=== PATIENT | male | born 1970 | race Caucasian/White ===

== ENCOUNTER 2016-10-24 10:36 | Emergency (ER) | payer MEDICAID ==
--- NOTE | ~2016-10-24 | CT4 ---
[facility] A Service of [facility] & [facility] RADIOLOGY TEXT RESULTS PATIENT: DEEDEE BRUNNER LOCATION: SED : 70 UNIT #: [id number] AGE: [address]: Willy Swain MD SEX: M ORDER DR: [id number] [place] [id number] E MR#: [id number] Acc #: [id number] NAME: DEEDEE BRUNNER : 1970 SEX: M STUDY DATE/TIME: 10/24/2016 11:20 UNIT: SED ROOM: STUDY DESCRIPTION: CT Abd and Pelv Wo Cont Attending Physician: Willy Swain M.D. Ordering Physician: Willy Swain M.D. Primary Care Physician: Ky Kincaid A.P.R.N. MEDICAL IMAGING REPORT This report is preliminary unless electronic signature is present. EXAM CT of the abdomen and pelvis without contrast INDICATIONS Right flank pain and vomiting for [address] images obtained from the dome of the diaphragm through the symphysis pubis. Oral contrast material was administered. This CT exam was performed with one or more of the following radiation dose reduction techniques: automatic exposure control, adjustment of mA and/or kV according to patient size, and iterative reconstruction. FINDINGS This patient has kvga-qw-cgiwbfle right-sided hydroureteronephrosis which is secondary to a 6 mm stone which is located in the proximal right ureter. Distal to this ureter is decompressed and no distal ureteral stones are seen. No stones are actually identified within either kidney and no ureteral stones are seen on the left. Patient does have perinephric soft tissue stranding around the right kidney and correlation with urinalysis and urine cultures is recommended. The spleen, stomach, proximal small bowel, adrenal glands, pancreas and gallbladder all appear unremarkable. Patient is suspected to have a cyst within the left kidney. No free fluid or adenopathy seen within the abdomen. There is a small fat-containing umbilical hernia. Patient's appendix is visualized and is within normal limits. Prostate gland contains dystrophic calcifications. Urinary bladder appears unremarkable. There are some sparse colonic diverticula without any evidence of diverticulitis. No free fluid or STS. [facility] A Service of [facility] & [facility] RADIOLOGY TEXT RESULTS PATIENT: DEEDEE BRUNNER LOCATION: SED : 70 UNIT #: [id number] AGE: [address]: Willy Swain MD SEX: M ORDER DR: adenopathy seen within the pelvis. Small bilateral fat containing inguinal hernias are noted. Review of bony windows does not demonstrate any aggressive osseous abnormalities. IMPRESSION 1. Bpqy-la-wpqcjypi right-sided hydroureteronephrosis which is secondary to a 6 mm stone located within the proximal right ureter. Distal to this, the ureter is decompressed. Patient is noted to have some perinephric and periureteral soft tissue stranding. Correlation with urinalysis and urine cultures is recommended. No stones are identified on the left and no distal ureteral or bladder stones are identified. 2. Sparse colonic diverticula without any evidence of diverticulitis. 3. Please see the body of the report for other additional incidental findings. 4. 1. Dictated by... Margaret Milton M.D. THIS IS AN ELECTRONICALLY VERIFIED REPORT Margaret Milton M.D. at 10/27/2016 1:26 PM AFF/pcl TD: 10/24/2016 19:48 JOB #: [id number] MEDICAL IMAGING REPORT Page 1 of 1
--- NOTE | ~2016-10-24 | CR6 ---
[facility] A Service of [facility] & [facility] RADIOLOGY TEXT RESULTS PATIENT: DEEDEE BRUNNER LOCATION: SED : 70 UNIT #: [id number] AGE: [address]: Willy Swain MD SEX: M ORDER DR: [id number] [place] [id number] E MR#: [id number] Acc #: [id number] NAME: DEEDEE BRUNNER : 1970 SEX: M STUDY DATE/TIME: 10/24/2016 12:15 UNIT: SED ROOM: STUDY DESCRIPTION: CR Abdomen Portable Sng View Attending Physician: Willy Swain M.D. Ordering Physician: Willy Swain M.D. Primary Care Physician: Ky Kincaid A.P.R.N. MEDICAL IMAGING REPORT This report is preliminary unless electronic signature is present. EXAM Portable abdomen HISTORY Right flank pain for a week. Right ureteral stone seen on CT scan today. FINDINGS A supine view of the abdomen was obtained. The bowel gas pattern is normal. The right ureteral stone is visible on the plain film, superimposed upon the right transverse process of L4. It is about 8 mm in diameter. Bones are unremarkable. IMPRESSION 8 mm ureteral stone is visible on the right side. It is superimposed upon the right L4 transverse process. Otherwise, study is normal. Dictated by... Pacheco Lopez M.D. THIS IS AN ELECTRONICALLY VERIFIED REPORT Pacheco Lopez M.D. at 10/25/2016 7:02 AM FEL/pcl TD: 10/24/2016 20:58 JOB #: [id number] MEDICAL IMAGING REPORT Page 1 of 1
[~2016-10-24 10:36] MED LIST: NO MEDICATIONS
[2016-10-24] MEDS ORDERED: DOXYCYCLINE150 MG (10:46)
[2016-10-24 11:27] LABS: BASOPHIL# 0.1 X10e3 (0-0.3); BASOPHIL% 0.8 % (0-2.5); EOSINOPHIL% 0.5 % (0.0-7.0); HEMATOCRIT 50.7 % (38.0-50.0); HEMOGLOBIN 17.4 gm/dL (13.0-16.0); LYMPHOCYTE# 2.4 X10e3 (1.0-3.5); LYMPHOCYTE% 25.7 % (17.0-45.0); MEAN CELL VOLUME 89.6 FL (83-96); MEAN CORPUSCULAR HEMOGLOBIN 30.8 PG (28-34); MEAN CORPUSCULAR HGB CONC 34.3 g/dL (30-36); MEAN PLATELET VOLUME 9.5 FL (6.5-11.5); MONOCYTE# 0.6 X10e3 (0-1.0); MONOCYTE% 6.9 % (3.0-12.0); NEUTROPHIL# 6.2 X10e3 (1.5-7.1); NEUTROPHIL% 66.1 % (40-75); PLATELET COUNT 190 X10e3 (140-420); RED BLOOD COUNT 5.66 X10e (3.90-5.60); RED CELL DISTRIBUTION WIDTH 13.3 % (11.0-15.5); WHITE BLOOD COUNT 9.3 X10e3 (4.0-10.5)
[2016-10-24 11:32] LABS: DIFF IND NO
[2016-10-24 11:41] LABS: MICRO INDICATED? YES; URINE APPEARANCE CLEAR; URINE BILIRUBIN NEG (NEG); URINE BLOOD 1+ (NEG); URINE COLOR DK YELLOW; URINE GLUCOSE NEG (NORM); URINE KETONE NEG (NEG); URINE LEUKOCYTE ESTERASE NEG (NEG); URINE NITRATE NEG (NEG); URINE PROTEIN NEG (NEG); URINE SOURCE CLEAN CATCH
[2016-10-24 11:45] LABS: CULTURE INDICATED? NO; URINE BACTERIA NEG (NEG); URINE MUCUS PRESENT; URINE RBC 0-2 /[HPF] (0-2); URINE SQUAMOUS EPITHELIAL CELL FEW /[HPF]; URINE WBC 0-2 /[HPF] (0-5)
[2016-10-24 11:47] LABS: ALBUMIN SERUM 4.5 g/dL (3.5-5.0); BILIRUBIN, DIRECT 0.4 mg/dL (0.0-0.2); BILIRUBIN,INDIRECT 1.4 mg/dL (0.0-0.9); BILIRUBIN,TOTAL 1.8 mg/dL (0.2-2.0); BUN/CREATININE RATIO 14.44; CALCIUM SERUM 9.3 mg/dL (8.4-10.2); CREATININE SERUM 0.9 mg/dL (0.6-1.4); GLOM FILT RATE Estimated 102.1 mL/min (>60); POTASSIUM 3.7 mmol/L (3.5-5.1); PROTEIN TOTAL SERUM 8.2 g/dL (6.0-8.3)
== END 2016-10-24 12:39 | disposition home or self-care (01) ==
LOC: SED 10:36
PROVIDERS: Emergency Medicine
DX: N13.2 Hydronephrosis with renal and ureteral calculous obstruction (principal); I10 Essential (primary) hypertension
CPT/HCPCS: 36415; 74000; 74176; 80048; 80076; 81003; 83690; 85025; 96374; 96375; 99284; J1885; J2405

== ENCOUNTER → 2016-11-13 | Outpatient (CLI) | payer MEDICAID ==
[~2016-11-13] MED LIST changes: +DOXYCYCLINE150 MG
--- NOTE | ~2016-11-13 | CR7 ---
[facility] A Service of [facility] RADIOLOGY TEXT RESULTS PATIENT: DEEDEE BRUNNER LOCATION: [facility] : 70 UNIT #: [id number] AGE: [address]: Brian Torrez MD SEX: M ORDER DR: [id number] [facility] [address] [place], [place] [address] [id number] O MR#: [id number] Acc #: [id number] NAME: DEEDEE BRUNNER : 1970 SEX: M STUDY DATE/TIME: 11/13/2016 9:42 UNIT: [facility] ROOM: STUDY DESCRIPTION: CR Abdomen Single AP View Attending Physician: Brian Torrez M.D. Referring Physician: Brian Torrez M.D. Ordering Physician: Brian Torrez M.D. Primary Care Physician: Primary Care Physician No MEDICAL IMAGING REPORT This report is preliminary unless electronic signature is present EXAM Abdomen 2 views, 11/13/2016 HISTORY Followup kidney stone right side, status post lithotripsy 2 weeks ago. FINDINGS Two views of the abdomen demonstrate normal bowel gas pattern with no evidence of bowel obstruction or free air. The bony structures are normal. There are no abnormal abdominal calcifications. IMPRESSION Negative abdomen. No stones are identified. Dictated by... Thomas Spence M.D. THIS IS AN ELECTRONICALLY VERIFIED REPORT Thomas Spence M.D. at 11/15/2016 6:24 AM VIOLETTA/paulo TD: 11/14/2016 11:52 JOB #: [id number] MEDICAL IMAGING REPORT Page 1 of 1 COPY
== END | disposition home or self-care (01) ==
LOC: CRAD 09:27
DX: N20.0 Calculus of kidney (principal)
CPT/HCPCS: 74000